=== PATIENT | male | born 1995 | race Caucasian/White ===

== ENCOUNTER 2017-02-15 14:05 | Emergency (ER) | payer OTHER ==
[2017-02-15 14:12] VITALS: TEMP 98.4
--- NOTE | 2017-02-15 14:16 | EDPHY ---
H & P Stated Complaint: punched a wall last night with his r hand HPI/ROS: HPI CHIEF COMPLAINT: Punched wall, right hand injury HISTORY OF PRESENT ILLNESS: This patient is a 22-year-old male otherwise healthy he is a [employer] student, he got intoxicated last night patient states that he was drunk and he punched a wall. He now has pain to his right hand. The pain is located over the 3rd metacarpal and knuckle region. Denies any other areas of injury. No laceration. Past Medical History: no medical history Past Surgical History: No surgical history Social History: [employer] student, Mets to alcohol last night. Denies illicit drugs. Family History: Noncontributory. ROS REVIEW OF SYSTEMS: A comprehensive 10 point review of systems is otherwise negative aside from elements mentioned in the history of present illness. Exam Constitutional appears well nontoxic triage nursing summary reviewed, vital signs reviewed, awake/alert. Eyes normal conjunctivae and sclera, EOMI, PERRLA. HENT normal inspection, atraumatic, moist mucus membranes, no epistaxis, neck supple/ no meningismus, no raccoon eyes. Respiratory clear to auscultation bilaterally, normal breath sounds, no respiratory distress, no wheezing. Cardiovascular rate normal, regular rhythm, no murmur, no edema, distal pulses normal. Gastrointestinal soft, non-tender, no rebound, no guarding, normal bowel sounds, no distension, no pulsatile mass. Genitourinary no CVA tenderness. Musculoskeletal no midline vertebral tenderness, full range of motion, no calf swelling, no tenderness of extremities, no meningismus, good pulses, neurovascularly intact. Right hand: This is neurovascular intact, good radial pulse, good cap refill, full range of motion. Swelling and tenderness noted over the 3rd metacarpal. Neurovascular intact. Good sensation. Good cap refill. Skin pink, warm, & dry, no rash, skin atraumatic. Neurologic awake, alert and oriented x 3, AAOx3, moves all 4 extremities equally, motor intact, sensory intact, CN II-XII intact, normal cerebellar, normal vision, normal speech. Psychiatric normal mood/affect. Heme/Lymph/Immune no lymphadenopathy. Differential Diagnosis: Includes but is not limited to in a particular order, right hand contusion, right hand fracture, metacarpal fracture, boxer's fracture , knuckle fracture. Medical Decision Making: Plan for this patient x-ray right hand. Re-evaluation: Right hand x-ray has been reviewed. Soft tissue swelling over the 3rd metatarsal. Unclear fracture. Patient be splinted in a ulnar gutter splint. And follow up with Hand surgery. I discussed this with the patient. He understands. He understands to ice his hand anti-inflammatory pain medicine and Hand surgery follow-up. Source: Patient - Personal History Current Tetanus/Diphtheria Vaccine: Yes - Medical/Surgical History Hx Asthma: No Hx Chronic Respiratory Disease: No Hx Diabetes: No Hx Cardiac Disease: No Hx Renal Disease: No Hx Cirrhosis: No Hx Alcoholism: No Hx HIV/AIDS: No Hx Splenectomy or Spleen Trauma: No Other PMH: denies - Social History Smoking Status: Never smoked Constitutional: Initial Vital Signs Temperature (C) 36.9 C 02/15/17 14:09 Heart Rate 84 02/15/17 14:09 Respiratory Rate 17 02/15/17 14:09 Blood Pressure 127/78 H 02/15/17 14:09 O2 Sat (%) 98 02/15/17 14:09 O2 Delivery Mode Room Air Allergies/Adverse Reactions: No Known Allergies Allergy (Unverified 02/15/17 14:09) Home Medications: Medication Instructions Recorded NK [No Known Home Meds] 02/15/17 Medical Decision Making - Diagnostics Imaging Results: Imaging Impressions Hand X-Ray 02/15/17 14:20 Impression: Dorsal soft tissue swelling at the MCP joint level, with a potential dorsal cortical fracture at the level of the distal third metacarpal diaphysis. Conservative management and short-term repeat radiographic follow-up in 7-14 days is suggested. Findings were discussed with Paul Agarwal MD at 14:41, on 02/15/2017. Departure - Departure Disposition: Home, Routine, Self-Care Clinical Impression: Hand fracture, right Qualifiers: Encounter type: initial encounter Fracture type: closed Qualified Code(s): S62.91XA - Unspecified fracture of right wrist and hand, initial encounter for closed fracture Hand contusion Qualifiers: Encounter type: initial encounter Laterality: right Qualified Code(s): S60.221A - Contusion of right hand, initial encounter Condition: Good Instructions: Hand Fracture (ED) Additional Instructions: 1. Ice your hand. 2. Anti-inflammatory pain medicine for pain control this includes Tylenol Motrin. 3. Follow up with Hand surgery. Referrals: DR HAO [Other] - As per Instructions Malvin Gregorio MD [Medical Doctor] - As per Instructions
[2017-02-15 15:35] VITALS: BP 135/70; PULSE 82; RESP 16; O2SAT 96
== END 2017-02-15 15:34 | disposition home or self-care (01) ==
DX: S62.392A Other fracture of third metacarpal bone, right hand, initial encounter for closed fracture (principal); S60.221A Contusion of right hand, initial encounter; W22.01XA Walked into wall, initial encounter; Y99.8 Other external cause status